=== PATIENT | male | born 2005 | race Caucasian/White ===

== ENCOUNTER 2024-12-19 08:32 | Emergency (ER) | payer OTHER, SELFPAY ==
--- NOTE | 2024-12-19 08:41 | ED.GENADULT ---
HPI - General Adult General Chief complaint: Extremity Injury, Lower Stated complaint: felt pop on right knee painful Time Seen by Provider: 12/19/24 08:40 History of Present Illness HPI narrative: 19-year-old male with history of right medial collateral knee ligament surgery 2 years ago [facility], works on the [employer], at 9:00 p.m. last night walking upstairs at work felt popping sensation to his right knee, has been painful to bear weight since then. No other injury recalled. Related Data Allergies Allergy/AdvReac Type Severity Reaction Status Date / Time No Known Drug Allergies Allergy Verified 12/19/24 08:46 Patient History Social History Smoking Status: Never smoker Exam Narrative Exam Narrative: GENERAL: Well-developed patient, in mild distress. HEAD: Atraumatic. Normocephalic. EYES: Pupils equal round and reactive. Extraocular motions intact. No scleral icterus. No injection or drainage. ENT: Nose without bleeding, purulent drainage. Throat without erythema, tonsillar hypertrophy or exudate. Airway patent. NECK: Trachea midline. Non tender CARDIOVASCULAR: Regular rate and rhythm without murmurs, gallops, or rubs. RESPIRATORY: Clear to auscultation. Breath sounds equal bilaterally. No wheezes, rales, or rhonchi. GASTROINTESTINAL: Abdomen soft, non-tender, nondistended. EXTREMITIES: Well-healed right medial inferior knee scar, no gross deformity, mild tenderness medial joint line, no obvious gross effusion. Seems to have reasonable endpoint with Lili's maneuver, Joseph maneuver not attempted due to pain. BACK: Nontender without deformity or crepitance. No flank tenderness. NEURO: AOx3. Motor functions grossly nonfocal SKIN: No rash or erythema of visible areas Initial Vital Signs Initial Vital Signs: Vital Signs Temperature 97.8 F 12/19/24 08:43 Pulse Rate 100 H 12/19/24 08:43 Respiratory Rate 18 12/19/24 08:43 Blood Pressure 159/103 H 12/19/24 08:43 Pulse Oximetry 100 12/19/24 08:43 Oxygen Delivery Method Room Air 12/19/24 08:43 Course Orders Ordered: ED Orders 12/19/24 08:42 XR knee RT 3V Stat Vital Signs Vital signs: Vital Signs - 8 hr 12/19/24 08:43 Temperature 97.8 F Pulse Rate 100 H Respiratory Rate 18 Blood Pressure 159/103 H Pulse Oximetry 100 Oxygen Delivery Method Room Air Medical Decision Making Imaging Data Extremity x-ray #1: Radiologist's Impression: Close Knee X-Ray (Signed) Barry Calderon - 12/19/24 Launch?[address] [address] XRay Report Signed Patient: TRAM IGLESIAS MR#: [id number] : 2005 Acct:[id number] Age/Sex: 19 / M Date of Service: 12/19/24 Loc: ED Accession Number: [id number] Procedure: XR knee RT 3V Ordering Provider: Willi See MD PROCEDURE: XR KNEE RT 3V INDICATIONS: pain TECHNIQUE: 3 views of the knee were acquired. COMPARISON: [facility], CR, XR KNEE ARTHRITIC SERIES RT, 09/28/2022, 6:56. [facility], CR, XR KNEE 1 OR 2 VIEWS RIGHT, 11/03/2022, 10:37. [facility], CR, XR KNEE 3 VIEWS RIGHT, 12/10/2024, 14:55. FINDINGS: Bones: No acute fractures or dislocations. Postsurgical changes from prior medial collateral ligament repair. Soft tissues: No joint effusion. No suspicious soft tissue calcifications. IMPRESSION: No acute osseous abnormality. If symptoms persist or if there is continued clinical concern, cross-sectional imaging such as MRI may be helpful for further evaluation. Approved by: Barry Calderon M.D. on 12/19/2024 at 9:09 MDM Narrative Medical decision making narrative: 19-year-old male with history of right medial collateral ligament knee surgery [facility] 2 years ago, at work walking upstairs on [email or web address] last night felt right knee popping sensation, with pain since that time. No fall or direct blow injury recalled. On examination has some mild tenderness of the right medial joint line, Joseph's not attempted due to pain, good endpoint with Lili maneuver. No gross deformity. X-ray ordered from triage. X-ray right knee without obvious bony injuries. History of previous ligamentous repair on affected symptomatic right knee, no bony injury, consider intra-articular derangement versus strain versus other. For now we will protect knee with right knee immobilizer, nonweightbearing with crutches, with Orthopedic surgery follow up. Given contact information for local orthopedic surgeon on-call Dr. Mooney, however he was advised to follow up with his established orthopedic surgeon at [facility] where he had surgery on that very knee 2 years ago. Patient expressed understanding of this plan. Labor and industry form from [facility] filled out. Discharge Plan Departure Patient Disposition: Home Clinical Impression: Strain of right knee, History of right knee surgery Activity Restrictions/Additional Instructions: History of prior right knee medial collateral ligament surgery about 2 years ago [facility]. You work for the [employer], last night at work you were walking upstairs and felt a pop sensation to the right knee, with subsequent persisting pain. On examination you seemed to have no gross deformity on examination, anterior posterior knee seemed fairly stable. Some mild tenderness along joint lines. Screening x-ray of the right knee showed no bony abnormality, but unfortunately does not really show information about the ligamentous structures which could be injured. Knee was placed in immobilizer with advice to not put weight on the right knee until cleared by Orthopedic surgery, with use of crutches and nonweightbearing. Follow up with your orthopedic surgeon at [facility]. Local orthopedic surgeon Dr. Bean contact information also provided, though you have establish care on that same knee with a previous orthopedic provider, likely might benefit from continuity of care. No work for now until cleared by Orthopedic surgery. Call office of your orthopedic surgeon later today to arrange close follow up. Take Tylenol and or Motrin as needed for pain control. Ice and elevate the knee. Return earlier to this/nearest emergency department for any change worsening symptoms or any concerns prior. Labor and industry and work forms filled out. Referrals: Sandra Bean MD [Physician] - Stand Alone Forms: Patient Portal/API/Survey
[2024-12-19 08:43] VITALS: BP 159/103; PULSE 100; RESP 18; TEMP 36.6; O2SAT 100; BMI 44.4
[2024-12-19 10:33] VITALS: BP 135/78; PULSE 66; RESP 19; TEMP 36.9; O2SAT 99
== END 2024-12-19 10:34 | disposition home or self-care (01) ==
PROVIDERS: Emergency Provider Emergency Medicine
DX: S86.811A Strain of other muscle(s) and tendon(s) at lower leg level, right leg, initial encounter (principal); Z98.890 Other specified postprocedural states; Y93.01 Activity, walking, marching and hiking; Y92.814 Boat as the place of occurrence of the external cause; Y99.0 Civilian activity done for income or pay
CPT/HCPCS: 73562; 99281; 99283